=== PATIENT | female | born 1970 | race Hispanic/Latino ===

== ENCOUNTER 2018-06-26 18:59 | Emergency (ER) | payer SELFPAY ==
[2018-06-26] MEDS ORDERED: Bicillin LA 1.2 MILLION UNITS/2 ML SYRINGE ONE (20:13)
[2018-06-26] MEDS ORDERED: Dexamethasone 4 MG TAB ONE (20:15)
== END 2018-06-26 20:56 | disposition home or self-care (01) ==
LOC: ERS 18:59
DX: J02.0 Streptococcal pharyngitis (principal); E78.5 Hyperlipidemia, unspecified; I10 Essential (primary) hypertension; M19.90 Unspecified osteoarthritis, unspecified site; F41.9 Anxiety disorder, unspecified; F32.9 Major depressive disorder, single episode, unspecified; F17.210 Nicotine dependence, cigarettes, uncomplicated; Q05.9 Spina bifida, unspecified
CPT/HCPCS: 87430; 87804; 96372; J0561; J8540